=== PATIENT | female | born 1990 | race Caucasian/White ===

== ENCOUNTER → 2017-12-11 07:02 | Outpatient (CLI) | payer OTHER ==
[~2017-12-11 07:02] MED LIST: DEPAKOTE ER500 MG; FOLIC ACID0.4 MG PO; KEPPRA1000 MG PO; KEPPRA750 MG PO; PERCOCET 5/3251 TAB PO; PRENATAL CAPSU1 EACH PO
== END | disposition home or self-care (01) ==
LOC: LAB 07:02
DX: Z00.00 Encounter for general adult medical examination without abnormal findings (principal)

== ENCOUNTER 2017-12-24 06:11 | Outpatient (CLI) | payer OTHER | END 2017-12-24 06:14 | disposition home or self-care (01) | LOC: LAB 06:11 | DX: Z34.80 Encounter for supervision of other normal pregnancy, unspecified trimester (principal) ==

== ENCOUNTER 2018-01-15 14:14 | Emergency (ER) | payer OTHER ==
[~2018-01-15] VITALS: Ht 165.1 cm; Wt 60.3 kg
[2018-01-15] MEDS ORDERED: VIRT-VITE PLUS T5 MG (14:42)
== END 2018-01-15 16:07 | disposition home or self-care (01) ==
LOC: ER 14:14
DX: Z34.81 Encounter for supervision of other normal pregnancy, first trimester (principal); S90.112S Contusion of left great toe without damage to nail, sequela; W22.8XXS Striking against or struck by other objects, sequela

== ENCOUNTER → 2018-01-20 06:51 | Outpatient (CLI) | payer OTHER ==
[~2018-01-20 06:51] MED LIST changes: +VIRT-VITE PLUS T5 MG
== END | disposition home or self-care (01) ==
LOC: LAB 06:51
DX: Z34.80 Encounter for supervision of other normal pregnancy, unspecified trimester (principal)

== ENCOUNTER 2018-02-17 06:42 | Emergency (ER) | payer OTHER ==
[~2018-02-17] VITALS: Ht 165.1 cm; Wt 87.5 kg
[2018-02-17] MEDS ORDERED: AMOXICILLIN500 M1 PO (09:31)
== END 2018-02-17 11:22 | disposition home or self-care (01) ==
LOC: ER 06:42
DX: Z34.82 Encounter for supervision of other normal pregnancy, second trimester (principal); H66.92 Otitis media, unspecified, left ear

== ENCOUNTER 2018-04-12 08:37 | Outpatient (CLI) | payer OTHER ==
[~2018-04-12 08:37] MED LIST changes: +AMOXICILLIN500 M1 PO
== END 2018-04-12 10:46 | disposition home or self-care (01) ==
LOC: SONOGRAMA 08:37
DX: Z34.82 Encounter for supervision of other normal pregnancy, second trimester (principal)

== ENCOUNTER 2018-06-05 06:24 | Outpatient (CLI) | payer OTHER | END 2018-06-05 06:42 | disposition home or self-care (01) | LOC: LAB 06:24 | DX: Z34.83 Encounter for supervision of other normal pregnancy, third trimester (principal) ==

== ENCOUNTER 2018-07-01 06:39 | Outpatient (CLI) | payer OTHER ==
[2018-07-22] MEDS ORDERED: PRENA1 PEARL S1 EACH PO (09:26)
== END 2018-07-01 06:43 | disposition home or self-care (01) ==
LOC: LAB 06:39
DX: G40.919 Epilepsy, unspecified, intractable, without status epilepticus (principal)

== ENCOUNTER → 2018-07-09 12:14 | Outpatient (CLI) | payer OTHER ==
[~2018-07-09 12:14] MED LIST changes: +PRENA1 PEARL S1 EACH PO
== END | disposition home or self-care (01) ==
LOC: LAB 12:14
DX: Z34.80 Encounter for supervision of other normal pregnancy, unspecified trimester (principal)

== ENCOUNTER 2018-07-22 09:40 | Inpatient (IN) | payer OTHER ==
[~2018-07-22] VITALS: Ht 165.1 cm; Wt 3.2 kg
[2018-08-04] MEDS ORDERED: NABUMETONE750 MG PO (13:52)
== END 2018-08-04 14:08 | DRG 766 ==
LOC: O/R 08-01 05:46 → OB/GYN 08-01 05:46
PROVIDERS: Specialist
PROC: 0UB70ZZ Excision of Bilateral Fallopian Tubes, Open Approach (ICD-10-PCS; 2018-08-01)
PROC: 4A1HXCZ Monitoring of Products of Conception, Cardiac Rate, External Approach (ICD-10-PCS; 2018-08-01)
PROC: 10D00Z1 Extraction of Products of Conception, Low, Open Approach (ICD-10-PCS; principal; 2018-08-01 07:00)
DX: O34.211 Maternal care for low transverse scar from previous cesarean delivery (principal); O75.82 Onset (spontaneous) of labor after 37 completed weeks of gestation but before 39 completed weeks gestation, with delivery by (planned) cesarean section; Z3A.38 38 weeks gestation of pregnancy; Z37.0 Single live birth; Z30.2 Encounter for sterilization

== ENCOUNTER 2018-08-11 12:06 | Outpatient (CLI) | payer OTHER ==
[~2018-08-11 12:06] MED LIST changes: +NABUMETONE750 MG PO
== END 2018-08-11 12:11 | disposition home or self-care (01) ==
LOC: LAB 12:06
DX: D64.89 Other specified anemias (principal)

== ENCOUNTER 2019-08-28 13:36 | Emergency (ER) | payer OTHER ==
[~2019-08-28] VITALS: Ht 165.1 cm; Wt 77.1 kg
== END 2019-08-28 16:22 | disposition home or self-care (01) ==
LOC: ER 13:36
DX: G40.801 Other epilepsy, not intractable, with status epilepticus (principal)

== ENCOUNTER 2019-09-15 06:15 | Outpatient (CLI) | payer OTHER | END 2019-09-15 06:22 | disposition home or self-care (01) | LOC: LAB 06:15 | DX: E22.1 Hyperprolactinemia (principal); G40.909 Epilepsy, unspecified, not intractable, without status epilepticus; E03.8 Other specified hypothyroidism ==

== ENCOUNTER → 2019-09-23 | Outpatient (CLI) | payer OTHER | END | disposition home or self-care (01) | LOC: MRI 12:46 | DX: D49.6 Neoplasm of unspecified behavior of brain (principal); G40.909 Epilepsy, unspecified, not intractable, without status epilepticus | CPT/HCPCS: 70553 ==

== ENCOUNTER 2020-06-22 09:59 | Outpatient (CLI) | payer OTHER ==
[~2020-06-22] VITALS: Ht 165.1 cm; Wt 81.6 kg
== END 2020-06-22 17:48 | disposition home or self-care (01) ==
LOC: OFIC 805 09:59
PROVIDERS: ATTEND Otolaryngology Otology & Neurotology
DX: H92.01 Otalgia, right ear (principal); H61.21 Impacted cerumen, right ear; H90.41 Sensorineural hearing loss, unilateral, right ear, with unrestricted hearing on the contralateral side

== ENCOUNTER 2020-07-26 08:00 | Outpatient (CLI) | payer OTHER | END 2020-07-26 15:00 | disposition home or self-care (01) | LOC: PPH VACUNA 08:00 | DX: Z23 Encounter for immunization (principal) ==